=== PATIENT | female | born 2000 | race Caucasian/White ===

== ENCOUNTER 2021-12-17 09:07 | Day surgery (SDC) | payer BC ==
--- NOTE | 2021-12-16 08:41 | RAD REPORT ---
EXAM DESCRIPTION: RAD - Chest Pa And Lat (2 Views) - 12/16/2021 8:35 am CLINICAL HISTORY: Pre op COMPARISON: None TECHNIQUE: Frontal and lateral views of the chest were obtained. FINDINGS: The lungs are clear. Heart size is normal and central vasculature is within normal limit s. No pleural effusion or pneumothorax seen. No acute bony finding noted. No aortic abnormality. IMPRESSION: No acute cardiopulmonary process.
[2021-12-16 09:40] LABS: Absolute Lymphocytes (CBC) 3.2 K/uL (0.7-4.9); Hematocrit 39.1 % (36.0-45.0); Lymphocytes % 35.9 % (15.3-44.8); MCV 86.3 fL (80-100); MPV 7.2 fL (7.6-11.3); RBC Red Blood Cell Count 4.54 M/uL (3.86-4.86)
[2021-12-16 10:02] LABS: Protime INR 1.12
[2021-12-16 10:03] LABS: Potassium 3.8 mmol/L (3.5-5.1)
[2021-12-16 10:07] LABS: SARS-CoV-2 Antigen Rapid Res Negative (Negative)
--- NOTE | 2021-12-16 12:46 | EKG ---
Test Date: 2021-12-16 Test Time: 08:12:18 Mechanical Equipment Sales Engineer: JEFFERY MEASUREMENT RESULTS: Intervals: Rate: 92 WA: 116 QRSD: 78 QT: 334 QTc: 413 [place]: P: 67 WA: 116 QRS: 78 T: 67 INTERPRETIVE STATEMENTS: Normal sinus rhythm with sinus arrhythmia Normal ECG No previous ECG available for comparison Electronically Signed On 12-16-21 12:46:24 CDT by Magdiel Canales
[2021-12-17] MEDS ORDERED: Ringers Lactate 1,000 ML IV ONE ×3 (09:25→13:16)
[2021-12-17] MEDS ORDERED: CEFAZOLIN 2 GM IN 0.9% NACL 2 GM/100 ML BAG ONE (09:26)
[2021-12-17] MEDS ORDERED: FENTANYL CITR 100 MCG/2 ML ONE ×2 (10:16→11:59)
[2021-12-17] MEDS ORDERED: MIDAZOLAM HCL 2 MG/2 ML INJ ONE (10:16)
[2021-12-17] MEDS ORDERED: LIDOCAINE 1% MPF 5 ML VIAL ONE (10:16)
[2021-12-17] MEDS ORDERED: dexAMETHasone 4 MG/ML VIAL ONE (10:16)
[2021-12-17] MEDS ORDERED: ROPLVACAINE HCL 40 ML ONE (10:17)
[2021-12-17] MEDS ORDERED: ACETAMINOPHEN 500 MG TAB ONE (10:18)
[2021-12-17] MEDS ORDERED: CELECOXIB 100 MG CAPSULE ONE (10:18)
[2021-12-17] MEDS ORDERED: LIDOCAINE 2% MPF 5 ML VIAL ONE (10:54)
[2021-12-17] MEDS ORDERED: propofoL 200 MG/20 ML VIAL IV ONE (10:54)
[2021-12-17] MEDS ORDERED: BUPIVACAINE 0.5% Inj,MDV 50 mL VIAL ONE (10:56)
[2021-12-17] MEDS ORDERED: ONDANSETRON 4 MG/2 ML VIAL ONE ×2 (10:56→13:40)
[2021-12-17] MEDS ORDERED: KETOROLAC 30 MG/ML INJ ONE (13:06)
--- NOTE | 2021-12-17 13:24 | RAD REPORT ---
EXAM DESCRIPTION: RAD - Ankle Right 2 View - 12/17/2021 1:17 pm CLINICAL HISTORY: ORIF RTANKLE COMPARISON: No comparisons FINDINGS: Fluoroscopy time 0.3 minutes.
[2021-12-17 13:28] VITALS: O2SAT 100
[2021-12-17] MEDS ORDERED: MEPERIDINE HCL 25 MG/ML SYR ONE (13:31)
--- NOTE | 2021-12-17 13:31 | P.BOP ---
Preoperative diagnosis: right trimalleolar ankle fracture Postoperative diagnosis: same Primary procedure: ORIF right bimalleolar ankle fracture Secondary procedure: closed treatment right posterior malleolus fracture Commercial Credit Reviewer: NONE,NONE Estimated blood loss: 5 cc Specimen: none Findings: see dictation Anesthesia: General Complications: None Implants: 6 hole Acumed distal fibula locking plate, 2- 4 mm cannulated screws Fluids & blood products: per anesthesia record; TT: 84 mins @ 300 mmHg Transferred to: Recovery Room Condition: Good
[2021-12-17] MEDS: MORPHINE 4 MG/ML SYR ONE ×2 (13:35→13:42)
--- NOTE | 2021-12-17 14:19 | RAD REPORT ---
EXAM DESCRIPTION: RAD - Ankle Right 2 View - 12/17/2021 2:07 pm CLINICAL HISTORY: S/P RIGHT ORIF BIMALLEOLAR FX COMPARISON: Ankle Right 2 View dated 12/17/2021 FINDINGS: Postsurgical changes are present with hardware in place involving the ankle. Mild soft tis sandoval swelling is present. Plastic cast is in place limiting bone detail. Lucency is seen in base of th e fifth metatarsal which may be fracture.
[2021-12-17] MEDS ORDERED: HYDROCODONE/APAP 7.5/325 MG TAB ONE (14:34)
[2021-12-17 15:24] VITALS: BP 119/78; TEMP 96.8
--- NOTE | 2021-12-18 00:20 | OP ---
Date of Procedure: 12/17/2021 Surgeon: Rohan Rodriguez MD Preoperative Diagnosis: Right trimalleolar ankle fracture. Postoperative Diagnosis: Right trimalleolar ankle fracture. Procedures Performed: 1.Open reduction internal fixation, right trimalleolar ankle fracture. 2.Closed treatment, right posterior malleolus fracture. Anesthesia: General LMA. Fluids: Per Anesthesia record. Estimated Blood Loss: 5 cc. Complications: None. Tourniquet Time: 84 minutes at 300 mmHg. Implants: 1.Acumed 6 hole distal fibular locking plate. 2.Two 4.0 mm cannulated screws. Indication For Procedure: Calli is a 21-year-old female who presented to my clinic with signs, sym ptoms and x-ray findings consistent with right trimalleolar ankle fracture. I discussed with the dhaval bhagat and her mother at length risks and benefits associated with operative and nonoperative treatment . She expressed understanding and elected to proceed with operative treatment. Description Of Procedure: After informed consent was obtained, the patient was identified in the pre operative holding area. The right lower extremity was marked. The patient was then brought back to the PACU where she underwent a femoral nerve block to the right lower extremity. She was then dat t back to the operative room, transferred to the operating table in supine fashion, and placed under general LMA anesthesia. Right lower extremity was then prepped and draped in usual sterile fashion. A time-out was initiated. The correct patient and procedure were confirmed and identified. The dhaval bhagat did receive her preoperative prophylactic antibiotics. Right lower extremity was exsanguinated using Esmarch. The tourniquet was inflated to 300 mmHg. First, attention was taken to the distal fi bula. Approximately, a 10 cm longitudinal incision was made centered over the distal fibula. Dissec tion was then taken down to the distal fibula, which was identified. There was an oblique fracture n oted just superior to the level of mortise. The fracture was then held reduced using a pointed reduc tion clamp. Fracture was then reduced and fixed using a standard AO technique using 3.5 cortical scr ew in lag fashion. There was good overall reduction and compression at the fracture site. A 6 hole Acumed distal fibular locking plate was then placed and it was fixed. Once again, proper positioning confirmed with fluoroscopy. It was placed along the lateral aspect of the distal fibula. It was fi xed distally using a cortical screw in unicortical fashion and then 3 screws proximally in unicortica l fashion followed by 3 distal locking screws. Wound was then irrigated thoroughly with normal salin e. A pointed reduction clamp was then used to perform Cotton test and it was noted that the syndesmo sis was intact. The wound was then irrigated again and subcutaneous tissue was approximated using a 2-0 Vicryl. Skin was approximated using 3-0 nylon. Next, attention was taken to the medial malleolu s. Approximately, a 4 cm longitudinal incision was made over the tip of the medial malleolus. Disse ction was then taken down to the fracture, which was identified. It was then held reduced with a poi nted reduction clamp. Proper reduction was confirmed using fluoroscopy. Two K-wires were placed in a retrograde fashion to help hold reduction of the fracture as well as placement of two 4.0 cannulate d screws. There was overall good compression of the fracture site noted. Proper positioning was con firmed using fluoroscopy. Wound was then irrigated thoroughly with normal saline. Subcutaneous tiss ue was approximated using 2-0 Vicryl. Skin was approximated using 3-0 nylon. Sterile dressings were applied. The patient was placed in a posterior and stirrup splint. Tourniquet was let down. The p atient was awakened and transferred to PACU in stable condition. Postoperative Plan: The patient will be nonweightbearing to her right lower extremity. She will fol low up in 2 weeks for wound check and suture removal. CV/MODL Voice ID: [id number] Report ID: [id number]
== END 2021-12-17 15:08 | disposition home or self-care (01) ==
LOC: OR 09:07
PROVIDERS: ATTEND Orthopaedic Surgery Sports Medicine
PROC: 0QSG04Z Reposition Right Tibia with Internal Fixation Device, Open Approach (ICD-10-PCS; principal; 2021-12-17 11:00)
DX: S82.851A Displaced trimalleolar fracture of right lower leg, initial encounter for closed fracture (principal); M25.571 Pain in right ankle and joints of right foot; Z20.822 Contact with and (suspected) exposure to COVID-19
CPT/HCPCS: 36415; 71046; 80048; 81025; 85025; 85610; 85730; 87811; 93005; J0690; J1100; J2175; J2250; J2405; J2704; J2795; J3010; J7120